=== PATIENT | male | born 1975 | race Caucasian/White ===

== ENCOUNTER 2023-11-04 10:36 | Emergency (ER) | payer SELFPAY ==
[2023-11-04 10:36] VITALS: BP 117/79; PULSE 73; RESP 16; TEMP 36.3; O2SAT 100
--- NOTE | 2023-11-04 10:56 | ED.GENADULT ---
HPI - General Adult General Chief complaint: Unspecified Stated complaint: Med Refill Time Seen by Provider: 11/04/23 10:39 History of Present Illness HPI narrative: Pt is here feor medication refill. Pt is out of his gabapentin 600 mg tid and flexeril 10 mg tid. Pt just moved to area and needs new PCP. Pt has chronic left knee pain for which he takes these meds. Pt works at [employer] and is on feet a lot. Related Data Home Medications Medication Instructions Recorded Confirmed gabapentin 600 mg tablet 600 mg PO TID 11/04/23 11/04/23 Allergies Allergy/AdvReac Type Severity Reaction Status Date / Time Penicillins Allergy Anaphylaxis Verified 11/04/23 10:48 Review of Systems Review of Systems: All systems reviewed & are unremarkable except as noted in HPI and below Exam Const: General: healthy appearing and no acute distress Nutritional Appearance: well nourished Orientation/consciousness: patient oriented x3 Limitations: no limitations Resp: Effort & Inspection: normal respiratory effort Cardio: Rate: regular rate Rhythm: regular rhythm GI: GI Palp: Yes Soft to palpation Skin: General skin exam: normal color Rashes: no rashes Wounds: no wounds Neuro: General: patient oriented x3, moves all extremities, no meningeal signs and no focal motor deficits Speech: normal speech Extrem: Other: tender over knee cap and laterally with mild swelling Psych: Mental Status: mental status grossly normal Affect: normal affect Attitude: cooperative Course Vital Signs Vital signs: Vital Signs Temperature 97.3 F L 11/04/23 10:36 Pulse Rate 73 11/04/23 10:36 Respiratory Rate 16 11/04/23 10:36 Blood Pressure 117/79 11/04/23 10:36 Pulse Oximetry 100 11/04/23 10:36 Oxygen Delivery Room Air 11/04/23 10:36 Temperature 97.3 F L 11/04/23 10:36 Pulse Rate 73 11/04/23 10:36 Respiratory Rate 16 11/04/23 10:36 Blood Pressure 117/79 11/04/23 10:36 Pulse Oximetry 100 11/04/23 10:36 Oxygen Delivery Room Air 11/04/23 10:36 Medical Decision Making MDM Narrative Medical decision making narrative: Pt needs Rx refill for chronic knee issues. will fill gabapentin and flexeril and give list of PCP's to call. Vital Signs Vital Signs: Vital Signs Temperature 97.3 F L 11/04/23 10:36 Pulse Rate 73 11/04/23 10:36 Respiratory Rate 16 11/04/23 10:36 Blood Pressure 117/79 11/04/23 10:36 Pulse Oximetry 100 11/04/23 10:36 Oxygen Delivery Room Air 11/04/23 10:36 Temperature 97.3 F L 11/04/23 10:36 Pulse Rate 73 11/04/23 10:36 Respiratory Rate 16 11/04/23 10:36 Blood Pressure 117/79 11/04/23 10:36 Pulse Oximetry 11/04/23 10:36 Oxygen Delivery Room Air 11/04/23 10:36 Discharge Plan Discharge Clinical Impression: Chronic knee pain Patient Disposition: Home, Self-Care Condition: Stable Instructions: Antibiotic Form, Knee Pain (ED) Prescriptions: New gabapentin 600 mg tablet 600 mg PO TID Qty: 90 0RF cyclobenzaprine 10 mg tablet 10 mg PO TID Qty: 90 0RF No Action gabapentin 600 mg Tablet 600 mg PO TID Follow-up/Referrals: UNKNOWN,DOCTOR [Primary Care Provider] -
[2023-11-04] MEDS: CYCLOBENZAPRINE HCL 10 MG TABLET PO (11:04)
[2023-11-04] MEDS: GABAPENTIN 300 MG CAPSULE 600 MG PO (11:04)
[2023-11-04 11:13] VITALS: BP 116/76; PULSE 70; RESP 16; TEMP 36.3; O2SAT 97
== END 2023-11-04 11:13 | disposition home or self-care (01) ==
LOC: CHSED 11:09
PROVIDERS: Emergency Provider Emergency Medicine
DX: M25.562 Pain in left knee (principal); G89.29 Other chronic pain; Z76.0 Encounter for issue of repeat prescription
CPT/HCPCS: 99283; A9270